=== PATIENT | female | born 1995 | race African-American/Black ===

== ENCOUNTER 2018-12-30 23:57 | Emergency (ER) | payer OTHER ==
[~2018-12-30] VITALS: Ht 170.2 cm; Wt 81.2 kg
[2018-12-31 00:03] VITALS: Ht 170.2 cm; Wt 81.2 kg
[2018-12-31 02:00] LABS: microscopic required? NO
[2018-12-31 02:06] LABS: urine erythrocyte NEGATIVE (NEGATIVE)
[2018-12-31 02:08] LABS: BASOPHIL % 1.2 % (0-2); PLATELET COUNT 166 x10^3mcL (130-400)
[2018-12-31 02:32] LABS: CALCIUM 9.1 mg/dL (8.5-10.1); CARBON DIOXIDE 24.7 mmol/L (21-32); CHLORIDE SERUM 106 mmol/L (98-107); CREATININE SERUM 0.8 mg/dL (0.6-1.0); GFR1 > 60 mL/min; GLUCOSE SERUM 82 mg/dL (74-106); POTASSIUM SERUM 3.9 mmol/L (3.5-5.1); SODIUM SERUM 142 mmol/L (136-145)
[2018-12-31 02:37] LABS: ALBUMIN 3.7 g/dL (3.4-5.0); ALKALINE PHOSPHATASE 48 U/L (46-116); ALT/SGPT 22 U/L (14-59); AST/SGOT 17 U/L (15-37); BILIRUBIN TOTAL 0.47 mg/dL (0.20-1.00); LIPASE 89 IU/L (73-393); TOTAL PROTEIN, SERUM 7.4 g/dL (6.4-8.2)
[2018-12-31 02:57] VITALS: BP 113/67
== END 2018-12-31 02:57 | disposition home or self-care (01) ==
LOC: ED 23:57
PROVIDERS: Emergency Medicine
DX: M54.6 Pain in thoracic spine (principal); Z88.6 Allergy status to analgesic agent
CPT/HCPCS: 36415; J1885

== ENCOUNTER 2019-01-21 14:40 | Emergency (ER) | payer OTHER ==
[~2019-01-21] VITALS: Ht 170.2 cm; Wt 79.8 kg
[2019-01-21 14:42] VITALS: Ht 170.2 cm; Wt 79.8 kg
== END 2019-01-21 15:15 | disposition home or self-care (01) ==
LOC: ED 14:40
DX: Z32.02 Encounter for pregnancy test, result negative (principal); Z88.6 Allergy status to analgesic agent; Z88.8 Allergy status to other drugs, medicaments and biological substances

== ENCOUNTER 2019-02-02 10:18 | Emergency (ER) | payer OTHER ==
[~2019-02-02] VITALS: Ht 167.6 cm; Wt 78.1 kg
[2019-02-02 10:26] VITALS: Ht 167.6 cm; Wt 78.1 kg
[2019-02-02 11:56] LABS: microscopic required? YES; urine erythrocyte NEGATIVE (NEGATIVE)
[2019-02-02 13:05] VITALS: BP 124/75
== END 2019-02-02 13:05 | disposition home or self-care (01) ==
LOC: ED 10:18
PROVIDERS: Specialist
DX: N39.0 Urinary tract infection, site not specified (principal); Z88.6 Allergy status to analgesic agent; Z88.8 Allergy status to other drugs, medicaments and biological substances
CPT/HCPCS: 87491; 87591

== ENCOUNTER 2019-02-16 15:23 | Emergency (ER) | payer OTHER ==
[~2019-02-16] VITALS: Ht 170.2 cm; Wt 77.7 kg
[2019-02-16 15:44] VITALS: BP 154/72; Ht 170.2 cm; Wt 77.7 kg
== END 2019-02-16 17:54 | disposition left against medical advice (07) ==
LOC: ED 15:23
DX: N94.6 Dysmenorrhea, unspecified (principal); F17.210 Nicotine dependence, cigarettes, uncomplicated; Z88.8 Allergy status to other drugs, medicaments and biological substances
CPT/HCPCS: 99406